=== PATIENT | male | born 1950 | race Caucasian/White ===

== ENCOUNTER → 2018-02-23 08:12 | Outpatient (CLI) | payer MEDICARE, OTHER, SELFPAY ==
--- NOTE | 2018-02-23 08:18 | AAAS_ITS ---
Aorta Measurements Aorta Doppler Measurements Proximal aorta measures1.44cm x 1.54cm. in cross-Peak systolic flow velocities within the proximal sectional axis. aorta measure 108 cm/sec. Proximal aorta measures1.52cm. in longitudinal Peak systolic flow velocities within the mid axis. aorta measure 118 cm/sec. Mid aorta measures1.39cm x 1.43cm. in cross- Peak systolic flow velocities within the distal sectional axis. aorta measure 99 cm/sec. Mid aorta measures1.38cm. in longitudinal axis. Distal aorta measures1.46cm x 1.57cm. in cross- sectional axis. Distal aorta measures1.46cm. in longitudinal axis. Left Iliac Artery Left iliac artery measures 1.02cm x 1.02 cm. in the cross-sectional axis. Left iliac artery measures 0.98 cm. in the longitudinal axis. Peak systolic velocity in the left iliac artery measures 100 cm/sec. Right Iliac Artery Right iliac artery measures 0.88cm x 0.90 cm. in the cross-sectional axis. Right iliac artery measures 0.84 cm. in the longitudinal axis. Peak systolic velocity in the right iliac artery measures 101 cm/sec. Procedure Exam performed in department. Interpretation Summary The dimensions of the intra-abdominal aorta are normal, without evidence of aneurysmal dilatation. The iliac arteries are also normal in size bilaterally. The intra-abdominal aorta and iliac arteries are patent, demonstrating normal, pulsatile arterial flow and normal peak systolic velocities. Ordering Physician: Leonel Hallman Referring Physician: Leonel Hallman Performed By: Anusha Sigala, TASHA, RVT
== END ==
PROVIDERS: Family Provider Family Medicine; PCP Family Medicine; Visit Provider Family Medicine
DX: Z13.6 Encounter for screening for cardiovascular disorders (principal)
CPT/HCPCS: 76706

== ENCOUNTER → 2023-02-11 | Outpatient (CLI) | payer MEDICARE, OTHER, SELFPAY ==
--- NOTE | 2023-02-11 12:21 | ECHOD_ITS ---
Reason For Study: MURUR Procedure This was a 2D Doppler, Color Flow transthoracic echocardiogram. The study was technically difficult. Due to body habitus. Contrast injection was performed. Exam performed in department. Left Ventricle Normal LV size. Left ventricular systolic function is normal. The estimated ejection fraction is 55 %. Stage 1 diastolic dysfunction. No regional wall motion abnormalities noted. Right Ventricle Normal RV size. Normal systolic function. Atria Normal left atrium. Normal right atrium. Mitral Valve Normal mitral valve. Tricuspid Valve Normal tricuspid valve. Aortic Valve Trisinus/trileaflet aortic valve. Mild focal aortic valve calcification. Peak aortic valve gradient 24 mmHg. Mean aortic valve gradient 14 mmHg. Mild aortic stenosis. Pulmonic Valve The pulmonic valve is not well visualized. Great Vessels Normal aortic root. Pericardium/Pleural No pericardial effusion. Medication 22 gauge I.V. with prn adaptor inserted into right arm. Diluted definity 2.0ml given slow IV push to enhance endocardial definition. MMode/2D Measurements & Calculations RVDd: 3.3 cm Ao root diam: 3.3 cm LAV(MOD-bp): 61.2 ml LAV(MOD-bp) Indexed: 26.6 ml/m2 LAV(MOD-sp2): 57.8 ml LAV(MOD-sp4): 61.7 ml SV(MOD-sp4): 37.2 ml LVAd ap4: 24.6 cm2 LVAd ap2: 20.2 cm2 LVLd ap4: 8.0 cm LVLd ap2: 7.9 cm EDV(MOD-sp4): 61.4 ml EDV(MOD-sp2): 43.4 ml EDV(sp4-el): 64.1 ml EDV(sp2-el): 43.8 ml LVAs ap4: 14.1 cm2 LVAs ap2: 11.4 cm2 LVLs ap4: 7.1 cm LVLs ap2: 6.5 cm ESV(MOD-sp4): 24.2 ml ESV(MOD-sp2): 16.4 ml ESV(sp4-el): 24.0 ml ESV(sp2-el): 17.0 ml EF(MOD-sp4): 60.5 % EF(MOD-sp2): 62.1 % EF(sp4-el): 62.7 % SV(MOD-sp2): 27.0 ml SV(sp4-el): 40.2 ml LA A4 area: 19.9 cm2 TAPSE: 1.7 cm RA A4 area: 14.3 cm2 Time Measurements MV dec time: 0.24 sec Doppler Measurements & Calculations MV E max alexi: 64.8 cm/sec Lat Peak E' Alexi: 10.7 cm/sec Med Peak E' Alexi: 9.2 cm/sec MV A max alexi: 68.4 cm/sec E/E' lat: 6.1 E/E' med: 7.0 MV E/A: 0.95 MV dec slope: 280.6 cm/sec2 Ao V2 max: 244.9 cm/sec LV V1 max: 88.3 cm/sec Ao max P.1 mmHg LV V1 max P.1 mmHg Ao V2 mean: 177.7 cm/sec LV V1 mean P.7 mmHg Ao mean P.8 mmHg LV V1 mean: 62.9 cm/sec Ao V2 VTI: 58.2 cm LV V1 VTI: 22.9 cm AV (velocity ratio): 0.39 PA V2 max: 105.1 cm/sec ECHO/Echo Complete W/ Contrast Interpretation Summary Normal LV size. Left ventricular systolic function is normal. The estimated ejection fraction is 55 %. Stage 1 diastolic dysfunction. Mild aortic stenosis. Mild focal aortic valve calcification. Ordering Physician: Lynnette Strauss Referring Physician: Lynnette Strauss Performed By: Sharron Randall RVT, RDCS and Student
== END | disposition home or self-care (01) ==
PROVIDERS: PCP Family Medicine; Referring Provider Family Medicine; Visit Provider Family Medicine
DX: R01.1 Cardiac murmur, unspecified (principal)
CPT/HCPCS: 93306; Q9957; A4216; C8929

== ENCOUNTER → 2023-03-26 | Outpatient (CLI) | payer MEDICARE, OTHER, SELFPAY ==
[2023-03-26 15:11] LABS: Absolute Lymphocyte Count 4.36 X10^3/uL (0.83-4.51); Absolute Neutrophil Count 4.4 X10^3/uL (2.0-7.7); Basophil# 0.07 X10^3/uL; Basophil% 0.7 % (0-1); Eosinophil# 0.24 X10^3/uL; Eosinophils% 2.4 % (0-5); Hematocrit 44.5 % (40-54); Hemoglobin 13.3 g/dL (13.0-16.5); Lymphocyte # 4.36 X10^3/ul (0.83-4.51); Mean Corp Hgb Conc 29.9 g/dL (32-36); Mean Corpuscular Hgb 25.1 pg (27.0-32.0); Mean Corpuscular Volume 84.1 fL (80-94); Mean Platelet Vol. 10.3 fl (6.2-12.0); Monocyte# 1.05 X10^3/uL; Monocyte% 10.3 % (0-10); NRBC Flagged by Analyzer 0 % (0-5); Neutrophil % 43.3 % (47-70); Platelet Count 290 K/mm3 (150-450); RBC Distribution Width CV 19.7 % (11.6-14.6); RBC Distribution Width SD 59.3 fl (35.1-43.9); RET-HE 30.8 pg (30-35); Red Blood Count 5.29 M/mm3 (4.6-6.2); Reticulocyte Count 1.09 % (0.5-1.5); White Blood Count 10.2 K/mm3 (4.4-11.0)
[2023-03-26 15:32] LABS: Vitamin B12 331 pg/mL (211-911); Vitamin D,25 Hydroxy 30.4 ng/mL
[2023-03-26 15:55] LABS: AST(SGOT) 23 U/L (15-37); Alanine Aminotransfer ALT/SGPT 24 U/L (16-61); Albumin, Serum 3.7 g/dL (3.2-5.0); Alkaline Phosphatase 75 U/L (45-117); Anion Gap 4 (5-15); BUN 11 mg/dL (7-18); BUN/Creat Ratio 13.6 RATIO (10-20); Calcium,Total 9.7 mg/dL (8.5-10.1); Chloride 107 mmol/L (98-107); Cholesterol 123 mg/dL (200); Creatinine, Serum 0.81 mg/dL (0.70-1.30); EST Glomerular Filtration Rate 99 mL/min (>60); Est Glom Filt Rate - Afr Amer 120 mL/min (>60); Ferritin 9 ng/mL (26-388); Globulin 3.6 g/dL (2.2-4.2); Glucose 91 mg/dL (74-106); High Density Lipoprotein 48 mg/dL; Iron 84 ug/dL (65-175); Iron Binding Capacity,Total 464 ug/dL (250-450); PERCENT IRON SATURATION 18.1 % (15.0-55.0); Potassium 4.4 mmol/L (3.5-5.1); Protein, Total 7.3 g/dL (6.4-8.2); Sodium Level 138 mmol/L (136-145); Thyroid Stim Hormone (TSH) 1.47 uIU/mL (0.358-3.74); Triglycerides 85 mg/dL; Very Low Density Lipoprotein 17 mg/dL (5-40)
== END | disposition home or self-care (01) ==
LOC: MFPLAB 12:02
PROVIDERS: PCP Family Medicine; Visit Provider Family Medicine
DX: E78.2 Mixed hyperlipidemia (principal); E61.1 Iron deficiency; R53.83 Other fatigue
CPT/HCPCS: 36415; 80053; 80061; 82306; 82607; 82728; 83540; 83550; 84443; 85025; 85045

== ENCOUNTER → 2023-08-14 | Outpatient (CLI) | payer MEDICARE, OTHER, SELFPAY ==
--- OUTSIDE RECORDS SUMMARY | 2023-08-14 12:28 | XMS RPT_ITS | CCD ---
Author Name Unknown Address [address] [place] [address] Organization [facility] Care Team Providers Care Mandrel Maker Name Role Phone Leonel Hallman MD Primary Care Provider LEONEL HALLMAN Attending Unavailable LEONEL HALLMAN Primary Care Unavailable Allergies Allergy Classification Reported Allergen(s) Allergy Type Date of Onset Reaction(s) Facility (2 sources) Sulfamethoxazole Propensity to adverse reactions 2 [facility] (2 sources) Sulfamethoxazole / Trimethoprim Drug Allergy 9 [facility] (2 sources) Trimethoprim Drug Allergy 2 [facility] Medications Current Medications Medication Drug Class(es) Dates Sig (Normalized) Sig (Original) loratadine 10 mg oral tablet (2 sources) loratadine (Claritin) 10 MG tablet Take by mouth. 0 Active rosuvastatin calcium 40 mg oral tablet (2 sources) HMG-CoA Reductase Inhibitor Start: 01-16-2023 take 1 tablet by mouth once daily rosuvastatin (Crestor) 40 MG tablet TAKE 1 TABLET BY MOUTH EVERY DAY 90 tablet 1 01/16/2023 Active Problems Active Problems Problem Classification Problem Date Documented Da te Episodic/Chronic Disorders of lipid metabolism (4 sources) Hyperlipidemia; Translations: [Hyperlipidemia, unspecified] Onset: 12-29-2015 05-13-2022 Chronic Other nutritional; endocrine; and metabolic disorders (2 sources) Obesity caused by energy imbalance; Translations: [Other obesity due to excess calories] Onset: 08-22-2021 05-13-2022 Chronic Other nutritional; endocrine; and metabolic disorders (2 sources) Other obesity due to excess calories; Translations: [Other obesity due to excess calories] Onset: 05-13-2022 Chronic Other nutritional; endocrine; and metabolic disorders (2 sources) Body mass index (BMI) 36.0-36.9, adult; Translations: [Body mass index (BMI) 36.0-36.9, adult] Onset: 05-13-2022 Chronic Other upper respiratory disease (2 sources) Allergic rhinitis due to pollen; Translations: [Allergic rhinitis due to pollen] Onset: 08-11-2020 05-13-2022 Chronic Past or Other Problems Problem Classification Problem Date Documented Da te Episodic/Chronic Neoplasms of unspecified nature or uncertain behavior (2 sources) Neoplasm of uncertain behavior of skin of nose; Translations: [Neoplasm of uncertain behavior of skin] Onset: 02-19-2021 08-26-2022 Episodic Other screening for suspected conditions (not mental disorders or infectious disease) (2 sources) Encounter for screening for malignant neoplasm of colon; Translations: [Encounter for screening for malignant neoplasm of colon] Onset: 08-26-2022 Episodic Other skin disorders (2 sources) Actinic keratosis; Translations: [Actinic keratosis] Onset: 02-23-2021 05-13-2022 Episodic Other upper respiratory disease (3 sources) Deviated nasal septum; Translations: [Deviated nasal septum] Onset: 08-26-2022 08-26-2022 Episodic Other upper respiratory disease (1 source) Deviated nasal septum; Translations: [Deviated nasal septum] Onset: 08-26-2022 Episodic Results Test Name Value Interpretation Reference Range Facil ity Encounters Encounter Date Encounter Type Care Provider Facility Start: 06-24-2023 Telephone encounter Leonel Florentino MD Work Phone: [facility] Procedures Date Procedure Procedure Detail Performing Clinician Start: 02-21-2022 Lipid 1996 panel - S ignacio or Plasma Leonel Hallman MD Work Phone: Start: 01-12-2015 Colonoscopy Leonel guadarrama MD Work Phone: Plan of Treatment Date Care Activity Detail Author Start: 02-21-2027 Lipid panel Lipid Panel [facility] Start: 01-12-2025 Screening for malign ant neoplasm of colon [facility] Start: 12-14-2023 DTaP/Tdap/Td Vaccine s (2 - Td or Tdap) DTaP/Tdap/Td Vaccines (2 - Td or Tdap) [facility] Start: 03-28-2023 COVID-19 Vaccine ( season) COVID-19 Vaccine ( season) [facility] Start: 03-28-2023 Influenza vaccination Influenza Vacc ine (#1) [facility] Start: 09-02-2022 COVID-19 Vaccine (5 - Pfizer series) COVID-19 Vaccine (5 - Pfizer series) [facility] Start: 2008 RSV Immunization age d 60 or older (1 - 1-dose 60+ series) RSV Immunization aged 60 or older (1 - 1-dose 60+ series) [facility] Start: 1966 Diabetes mellitus screening Diabetes Screening [facility] Start: 1966 Hepatitis C screening Hepatitis C Sc reening [facility] Start: 1960 Depression Screening Depression Scre ening [facility] Start: 01-10-1949 Examination of skin Derm Melanoma Sk in Check [facility] Start: 1948 Medicare Annual Well ness (AWV) Medicare Annual Wellness (AWV) [facility] Start: 1950 Screening for malign ant neoplasm of colon [facility] Immunizations Immunization Date Immunization Notes Care Provider Fa cility 05-16-2022 influenza virus vacc ine, unspecified formulation Leonel Hallman MD Work Phone: [facility] 05-16-2022 Influenza, High-dose Seasonal, Quadrivalent, Preservative Free Leonel Hallman MD Work Phone: [facility] 05-02-2022 Covid-19, Pfizer Biv alent Booster, (Age 12y+), Im, 30 Mcg/0e Leonel Hallman MD Work Phone: [facility] 12-26-2021 Covid-19, Pfizer Gra y Top, Do Not Dilute, (Age 12 Y+), Im, L Leonel Hallman MD Work Phone: [facility] 06-01-2021 Pfizer SARS-CoV-2 Vaccination Leonel Hallman MD Work Phone: [facility] 05-24-2021 Influenza, High-dose Seasonal, Quadrivalent, Preservative Free Leonel Hallman MD Work Phone: [facility] 05-03-2020 Influenza, Seasonal, Quadrivalent, Adjuvanted Leonel Hallman MD Work Phone: [facility] 04-20-2020 zoster vaccine recombinant Leonel Hallman MD Work Phone: [facility] 02-18-2020 zoster vaccine recombinant Leonel Hallman MD Work Phone: [facility] 05-03-2019 Seasonal trivalent influenza vaccine, adjuvanted, preservative free Leonel Hallman MD Work Phone: [facility] Work Phone: 05-12-2018 influenza, high dose seasonal, preservative-free Leonel Hallman MD Work Phone: [facility] 03-03-2018 influenza, high dose seasonal, preservative-free Leonel Hallman MD Work Phone: [facility] 05-16-2017 influenza, high dose seasonal, preservative-free Leonel Hallman MD Work Phone: [facility] 12-31-2014 zoster vaccine, live Leonel Hallman MD Work Phone: [facility] 12-26-2014 pneumococcal conjuga te vaccine, 13 valent Leonel Hallman MD Work Phone: [facility] 12-13-2013 pneumococcal polysaccharide vaccine, 23 valent Leonel Hallman MD Work Phone: [facility] 12-13-2013 tetanus toxoid, redu bird diphtheria toxoid, and acellular pertussis vaccine, adsorbed Leonel Hallman MD Work Phone: [facility] Payers Date Payer Category Payer Private Health Insurance [employer] A [employer] S[employer]IOR [employer]MENT [id number] 2019-Present [address] [address] [place] [address] Supplement [id number] 2019 Private Health Insurance [facility] [id number] 2014 Medicare MEDICARE MEDICAR E PART A AND B [id number] 2014-Present [address] [place] [address] Medicare [id number] 2014 Medicare [id number] Social History Date Type Detail Facility Start: 08-26-2022 Tobacco smoking status NHIS Ex-smoke r [facility] End: 11-25-2021 History of tobacco use Current smoker [facility] End: 11-25-2021 History of tobacco use Cigarette Smoker [facility] Start: 08-26-2022 Cigarettes smoked cu rrent (pack per day) - Reported 0.3 [facility] Start: 08-26-2022 Tobacco use and exposure Smokeless t obacco non-user [facility] Start: 08-26-2022 Alcohol intake Current drinke r of alcohol (finding) [facility] Start: 08-26-2022 Tobacco use panel [facility] How hard is it for y ou to pay for the very basics like food, housing, medical care, and heating Not hard at all [facility] (I/We) worried miguel er (my/our) food would run out before (I/we) got money to buy more. Never true [facility] Start: 1950 Sex Assigned At Not on file [facility] Telephone encounter Note 06-30-2023 Telephone Encounter - Leonel Hallman MD - 06/30/2023 6:50 AM EST Note Date & Type Note Facility 06-30-2023 Telephone encounter Note Form atting of this note might be different from the original. Okay, thank you [facility] Note 06-30-2023 Telephone Encounter - Leonel Hallman MD - 06/30/2023 6:50 AM ESTTelephone Encounter - Shayy Rick - 06/24/2023 4:58 PM EST Note Date & Type Note Facility 06-30-2023 Miscellaneous Notes Formattin g of this note might be different from the original. Okay, thank you FYI: Referral to Dr Ruvalcaba on 08/26/22 was closed due to non-compliancy from patient. documented in this encounter [facility] Clinical Note 06-24-2023 Note Date & Type Note Facility 06-24-2023 Note FYI: Referral to Dr Ruvalcaba on 08/26/22 was closed due to non-compliancy from patient. [facility] Telephone encounter Note 06-24-2023 Telephone Encounter - Shayy Rick - 06/24/2023 4:58 PM EST Note Date & Type Note Facility 06-24-2023 Telephone encounter Note Form atting of this note might be different from the original. FYI: Referral to Dr Ruvalcaba on 08/26/22 was closed due to non-compliancy from patient. [facility] Telephone encounter Note 04-30-2023 Telephone Encounter - Kassy Jacobs - 04/30/2023 11:43 AM EDT Note Date & Type Note Facility 04-30-2023 Telephone encounter Note Form atting of this note might be different from the original. Noted [facility] Note 04-30-2023 Telephone Encounter - Kassy Jacobs - 04/30/2023 11:43 AM EDTTelephone Encounter - Leonel Hallman MD - 04/23/2023 4:16 PM EDT Note Date & Type Note Facility 04-30-2023 Miscellaneous Notes Formattin g of this note might be different from the original. Noted Okay, thank you This communication is to update you on the GI referral placed for Dr. Jan Trejo. Referral has been sent to referred specialist for completion. Unfortunately, the patient has not responded to any form of communication attempted by the specialists office or ours. Requesting approval to close referralClose Referral Requesting response and or direction to be able to complete the referral process Please advise documented in this encounter [facility] Clinical Note 04-23-2023 Note Date & Type Note Facility 04-23-2023 Note This communication i s to update you on the GI referral placed for Dr. Jan Trejo. Referral has been sent to referred specialist for completion. Unfortunately, the patient has not responded to any form of communication attempted by the specialists office or ours. Requesting approval to close referralClose Referral Requesting response and or direction to be able to complete the referral process Please advise [facility] Telephone encounter Note 04-23-2023 Telephone Encounter - Leonel Hallman MD - 04/23/2023 4:16 PM EDT Note Date & Type Note Facility 04-23-2023 Telephone encounter Note Form atting of this note might be different from the original. Okay, thank you [facility] Telephone encounter Note 04-23-2023 Telephone Encounter - Kassy Jacobs - 04/23/2023 3:49 PM EDT Note Date & Type Note Facility 04-23-2023 Telephone encount er Note This communication is to update you on the GI referral placed for Dr. Jan Trejo. Referral has been sent to referred specialist for completion. Unfortunately, the patient has not responded to any form of communication attempted by the specialists office or ours. Requesting approval to close referralClose Referral Requesting response and or direction to be able to complete the referral process Please advise [facility] Clinical Note 08-26-2022 Note Date & Type Note Facility 08-26-2022 Note Referral to ENTcésar that he use a steroid nasal spray and antihistamine on a regular basis [facility] Summary Purpose Family History No Family History Records Found Advance Directives No Advanced Directives Records Found Additional Source Comments Reason for Visit (unrecogniz ed section and content) Reason Onset Date Comments Referral 06/24/2023 Dr Ruvalcaba Care Teams (unrecognized sec tion and content) Mandrel Maker Relationship Specialty Start Date End Date Leonel Hallman MD [address] [place] [address], [facility] [place] [address] PCP - General 12/26/18 (unrecognized sect ion and content) No Status Records Found INFORMATION SOURCE (unrecogn ized section and content) FOR RECORDS PERTAINING TO PATIENTS WHO ARE OR HAVE BEEN ENROLLED IN A CHEMICAL DEPENDENCY/SUBSTANCEABUSE PROGRAM, SOME INFORMATION MAY BE OMITTED. This clinical summary was aggregated from multiple sources. Caution should be exercised in using it in the provision of clinical care. This summary normalizes information from multiple sources, and as a consequence, information in this document may materially change the coding, format and clinical context of patient data. In addition, data may be omitted in some cases. CLINICAL DECISIONS SHOULD BE BASED ON THE PRIMARY CLINICAL RECORDS. [employer] provides no warranty or guarantee of the accuracy or completeness of information in this document.
[2023-08-14 15:46] LABS: Absolute Lymphocyte Count 4.65 X10^3/uL (0.83-4.51); Absolute Neutrophil Count 5.4 X10^3/uL (2.0-7.7); Basophil# 0.09 X10^3/uL; Basophil% 0.8 % (0-1); Eosinophil# 0.25 X10^3/uL; Eosinophils% 2.2 % (0-5); Hematocrit 48.8 % (40-54); Hemoglobin 15.3 g/dL (13.0-16.5); Lymphocyte # 4.65 X10^3/ul (0.83-4.51); Lymphocyte % 40.1 % (19-41); Mean Corp Hgb Conc 31.4 g/dL (32-36); Mean Corpuscular Hgb 29.1 pg (27.0-32.0); Mean Platelet Vol. 9.8 fl (6.2-12.0); Monocyte# 1.11 X10^3/uL; Monocyte% 9.6 % (0-10); NRBC Flagged by Analyzer 0 % (0-5); Neutrophil # 5.43 X10^3/uL (2.7-7.7); Neutrophil % 46.7 % (47-70); Platelet Count 354 K/mm3 (150-450); RBC Distribution Width CV 14.8 % (11.6-14.6); RBC Distribution Width SD 51.4 fl (35.1-43.9); Red Blood Count 5.25 M/mm3 (4.6-6.2); White Blood Count 11.6 K/mm3 (4.4-11.0)
[2023-08-14 16:42] LABS: Ferritin 36 ng/mL (26-388); Iron 83 ug/dL (65-175); Iron Binding Capacity,Total 425 ug/dL (250-450); PERCENT IRON SATURATION 19.5 % (15.0-55.0); PSA,Total - Annual Screen 0.96 ng/mL (0.00-4.00)
== END | disposition home or self-care (01) ==
LOC: MFPLAB 12:02
PROVIDERS: PCP Family Medicine; Visit Provider Family Medicine
DX: Z12.5 Encounter for screening for malignant neoplasm of prostate (principal); D59.0 Drug-induced autoimmune hemolytic anemia
CPT/HCPCS: 36415; 82728; 83540; 83550; 84153; 85025; G0103

== ENCOUNTER 2024-03-22 00:26 | Emergency (ER) | payer MEDICARE, OTHER, SELFPAY ==
[2024-03-22 00:28] VITALS: BP 175/74; PULSE 82; RESP 18; TEMP 36.3; O2SAT 95; BMI 34.7
--- NOTE | 2024-03-22 01:13 | CT_ITS ---
INDICATION: DIZZY EXAMINATION: CT BRAIN - CT Head or Brain W/O Contrast Injection TECHNIQUE: Multiple axial images were obtained of the head without intravenous contrast. The protocol utilizes one or more of the following dose reduction techniques: automated exposure control, adjustment of mA and/or kV according to patient size,and/or use of iterative reconstruction technique. IV Contrast dosage and agent: None. RADIATION DOSAGE (If Supplied By Facility): CTDIvol = ( 44.99 ) mGy, DLP = ( 880.47 ) mGycm COMPARISON: No relevant prior comparison study available FINDINGS: BRAIN: No acute bleed. No edema. Mild decreased attenuation in the periventricular white matter bilaterally. Odom-white matter differentiation is maintained. Arterial calcifications. VENTRICLES AND SULCI: Not dilated. EXTRA-AXIAL: No hemorrhage, fluid collection, or mass. CALVARIUM / SKULL BASE: Unremarkable. FACE/SINUSES: Unremarkable. SOFT TISSUES: Unremarkable. CT/Brain/Head without Contrast IMPRESSION: No acute abnormality. Mild chronic microvascular ischemic disease. CT angiogram and/or MRI may be helpful to evaluate for acute infarct as clinically indicated. Electronically Signed: Porsha Levy MD at 2:30 EDT ,
[2024-03-22 01:21] LABS: Absolute Lymphocyte Count 6.34 X10^3/uL (0.83-4.51); Absolute Neutrophil Count 5.2 X10^3/uL (2.0-7.7); Basophil# 0.08 X10^3/uL; Basophil% 0.6 % (0-1); Eosinophil# 0.31 X10^3/uL; Eosinophils% 2.4 % (0-5); Hematocrit 44.3 % (40-54); Hemoglobin 14.6 g/dL (13.0-16.5); Lymphocyte # 6.34 X10^3/ul (0.83-4.51); Lymphocyte % 48.2 % (19-41); Mean Corpuscular Hgb 30.6 pg (27.0-32.0); Mean Corpuscular Volume 92.9 fL (80-94); Mean Platelet Vol. 9.3 fl (6.2-12.0); Monocyte# 1.15 X10^3/uL; Monocyte% 8.7 % (0-10); NRBC Flagged by Analyzer 0 % (0-5); Neutrophil # 5.16 X10^3/uL (2.7-7.7); Neutrophil % 39.2 % (47-70); POSITIVE DIFFERENTIAL YES; POSITIVE MORPHOLOGY YES; Platelet Count 260 K/mm3 (150-450); RBC Distribution Width CV 13.2 % (11.6-14.6); RBC Distribution Width SD 44.9 fl (35.1-43.9); Red Blood Count 4.77 M/mm3 (4.6-6.2); White Blood Count 13.2 K/mm3 (4.4-11.0)
[2024-03-22 01:25] LABS: Differential Indicated SCAN CRITERIA MET
--- NOTE | 2024-03-22 01:28 | RAD_ITS ---
INDICATION: cough EXAMINATION/TECHNIQUE: X-RAY - XR Chest 2 Views COMPARISON: No relevant prior comparison study available FINDINGS: LINES/DEVICES: None. LUNGS: No consolidation. Reticular opacity in the lung bases may be scarring or subsegmental atelectasis. No pneumothorax. MEDIASTINUM: Unremarkable. CARDIAC SILHOUETTE: Not enlarged. BONES AND SOFT TISSUES: No acute abnormalities. RAD/Chest PA and Lateral IMPRESSION: Bibasilar scarring versus subsegmental atelectasis. No infiltrates. Electronically Signed: Porsha Levy MD at 3:10 EDT ,
[2024-03-22 01:37] LABS: Anion Gap 5 (5-15); BUN 13 mg/dL (7-18); BUN/Creat Ratio 11.9 RATIO (10-20); Calcium,Total 9.2 mg/dL (8.5-10.1); Chloride 108 mmol/L (98-107); Creatinine, Serum 1.09 mg/dL (0.70-1.30); EST Glomerular Filtration Rate 70 mL/min (>60); Est Glom Filt Rate - Afr Amer 85 mL/min (>60); Estimated Creatinine Clearance 74.89 ml/min; Glucose 114 mg/dL (74-106); Magnesium 2.1 mg/dL (1.6-2.6); Potassium 3.6 mmol/L (3.5-5.1); Sodium Level 142 mmol/L (136-145)
[2024-03-22 01:51] LABS: Differential Comment SCANNED; Reactive Lymphocyte 3+
[2024-03-22] MEDS: 0.9% Normal Saline (500mL Bag) 500 ML 999 ML IV (02:01)
[2024-03-22] MEDS: diazePAM 5 MG Tablet 2.5 MG PO (02:02)
[2024-03-22 02:27] VITALS: BP 141/69; PULSE 72; RESP 15; O2SAT 95
--- NOTE | 2024-03-22 03:18 | EDS_ITS ---
HPI History of Present Illness Chief Complaint: Dizziness Informant: patient, spouse/S.O. and family Narrative Narrative: Patient is a 73-year-old male with past medical history of hypertension. He states for approximately 10 days he has had nasal congestion with mild cough. He reports that he had been seen for this and that he was placed on steroids and an antibiotic however there was no drastic symptom improvement. He states he does seem to get this twice a year. However this evening he was in bed and he states he rolled over and he developed severe dizziness which she describes as a sense of motion and nausea. He states that it happened a second time and that concerned him and therefore EMS was called. However by the time EMS arrived patient had near complete resolution of his dizziness and was able to walk to the ambulance with a steady gait [facility] Medical History (Updated 03/23/24 @ 01:[address] Chandu Wadsworth, ) Hypercholesterolemia Home Medications ?Medication ?Instructions ?Recorded ?Last Taken ?Type atorvastatin 10 mg tablet (Lipitor) 10 mg PO DAILY 10/30/18 Unknown History azithromycin 250 mg tablet See Rx Instructions PO .COMPLEX #6 07/13/23 Unknown Rx (Zithromax Z-Moses) tabs prednisone 10 mg tablet 10 mg PO .COMPLEX #30 tabs 07/13/23 Unknown Rx amoxicillin 875 mg-potassium 1 tab PO BID #20 tabs 07/29/23 Unknown Rx clavulanate 125 mg tablet diazepam 2 mg tablet (Valium) 2 mg PO TID PRN dizziness or 03/22/24 Unknown Rx vertigo #15 tabs ondansetron 4 mg disintegrating 4 mg PO TID PRN nausea and 03/22/24 Unknown Rx tablet vomiting #21 tabs Allergy/AdvReac Type Severity Reaction Status Date / Time sulfamethoxazole (From Allergy Rash Verified 03/22/24 00:28 Bactrim) trimethoprim (From Bactrim) Allergy Rash Verified 03/22/24 00:28 Surgical History History of cataract surgery Detached retina, bilateral History of appendectomy Social History Smoking Status: Former smoker alcohol intake: current alcohol intake frequency: 0-2 drinks per day Alcohol type: beer ROS ROS ED Constitutional Constitutional ED: Denies chills or fever(s) Eyes Eyes: Denies blurry vision or change in vision ENT ENT ED: Reports rhinorrhea, sore throat and other Details: Patient denies tinnitus ; Denies ear pain Cardiovascular Cardiovascular: Denies chest pain, palpitations or racing heartbeat Respiratory/Chest Respiratory/Chest: Denies cough or dyspnea Gastrointestinal Gastrointestinal: Reports nausea; Denies abdominal pain, diarrhea or vomiting Genitourinary Genitourinary ED: Denies dysuria Musculoskeletal Musculoskeletal: Denies myalgias Integumentary Denies rash Neurologic Neurologic: Reports other Details: Positive dizziness ; Denies headache(s) Hematologic/Lymphatic Hematologic/Lymphatic: Denies easy bleeding or easy bruising EXAM Physical Exam Const Vital Signs: 03/22/24 02:27 03/22/24 03:34 Temperature 98.9 F Pulse Rate 72 84 Respiratory Rate 15 21 H Blood Pressure 141/69 H 134/95 H Blood Pressure Mean 93 108 Pulse Ox 95 94 Oxygen Delivery Method Room Air Positive well nourished, well developed and obese General Appearance ED: well developed; Negative for pallor Nutritional Appearance: obese HEENT HEENT Narrative: Bilateral TMs are retracted but show no secondary changes to suggest infection/hepatitis No pain with palpation of either mastoid region There is cobblestoning noted in posterior pharynx consistent with sinus drainage without airway edema or compromise No secondary findings in the posterior pharynx to suggest infection Eyes PERRL and EOMs intact bilaterally General Eye ED: Negative for pale conjunctiva or scleral icterus Neck supple and no JVD Neck Narrative: No nuchal rigidity or meningeal sign Resp normal respiratory effort and clear to auscultation bilaterally Cardio regular rate and regular rhythm Extremity normal to inspection Neuro oriented x3, CN's II-XII intact bilaterally and no sensory deficits noted Neuro Narrative: GCS of 15 Cranial nerves II through XII are grossly intact there are no focal neurologic deficits No pronator drift no dysmetria no truncal ataxia NIH stroke scale score of 0 There is mild horizontal nystagmus noted Sensorium / Orientation: alert Motor Exam: strength 5/5 throughout Psych mental status grossly normal Skin no rashes or lesions noted General Skin Exam: Negative for jaundice or pallor MDM MDM MDM Narrative Medical decision making narrative: Patient arrived to the ER hypertensive otherwise with stable vitals. He reported that he rolled over in bed and developed severe dizziness which she described as motion that improved at rest. Demential diagnosis is for benign paroxysmal positional vertigo versus lab arthritis versus central vertigo. There is also potential for infection such as pneumonia as she has had congestion and cough or electrolyte abnormality or acute blood loss anemia. Basic labs were obtained and his white blood cell count is slightly elevated but he also has had recent steroid use which is most likely reason for this. Otherwise H&H is stable and he does not have acute kidney injury or clinically significant electrolyte abnormality. Head CT revealed no acute bleed or mass. Chest x-ray revealed no acute lung pathology such as pneumonia. after receiving Valium he was able to ambulate with a steady gait and is overall workup is negative he has had improvement of his vitals and his neurologic exam remains normal and the dizziness has resolved there is no need for further evaluation or admission and he is otherwise safe for discharge History & Record Review Discussion w/independent historian: Patient, Family and Significant other Lab Data Attestation: I reviewed the patient's lab results. Labs: Laboratory Results - last 24 hr 03/22/24 00:36 Differential Comment SCANNED Reactive Lymphocytes 3+ Radiography Diagnostic Testing: Clinical Impression(s) from Imaging Studies Brain CT 03/22/24 01:13 IMPRESSION: No acute abnormality. Mild chronic microvascular ischemic disease. CT angiogram and/or MRI may be helpful to evaluate for acute infarct as clinically indicated. Electronically Signed: Porsha Levy MD at 2:30 EDT , Chest X-Ray 03/22/24 01:28 IMPRESSION: Bibasilar scarring versus subsegmental atelectasis. No infiltrates. Electronically Signed: Porsha Levy MD at 3:10 EDT , Chest x-ray as interpreted by the emergency medicine physician reveals no acute infiltrate pneumothorax or pleural effusion Discharge Plan Triage Chief Complaint: Dizziness ED Provider: Chandu Wadsworth Dx/Rx/DC Orders Clinical Impression: Vertigo, URI (upper respiratory infection), Hyperlipidemia Instructions: ED BPV Vertigo, ED URI, Viral, No Abx (Adult) Prescriptions: New ondansetron 4 mg tablet,disintegrating 4 mg PO TID PRN (Reason: nausea and vomiting) Qty: 21 0RF diazepam [Valium] 2 mg tablet 2 mg PO TID PRN (Reason: dizziness or vertigo) Qty: 15 0RF No Action atorvastatin [Lipitor] 10 mg tablet 10 mg PO DAILY azithromycin [Zithromax Z-Moses] 250 mg tablet See Rx Instructions PO .COMPLEX Qty: 6 0RF Rx Instructions: For 250 mg dose pack: take 500 mg today (day 1), then 250 mg for 4 days (days 2-5) PO prednisone 10 mg tablet 10 mg PO .COMPLEX Qty: 30 0RF Rx Instructions: Take 4 pills for 3 days, 3 pills for 3 days, 2 pills for 3 days, take 1 pill for 3 days amoxicillin-pot clavulanate 875-125 mg tablet 1 tab PO BID Qty: 20 0RF Stand Alone Forms: ED Work / School Excuse Primary Care Provider: Jyotsna Jean Referrals: Jyotsna Jean MD [Primary Care Provider] - Print Language: Guinean Disposition Disposition: Home, Self Care Discharge Date/Time: 03/22/24 03:34
[2024-03-22 03:34] VITALS: BP 134/95; PULSE 84; RESP 21; TEMP 37.2; O2SAT 94
== END 2024-03-22 03:34 | disposition home or self-care (01) ==
PROVIDERS: Emergency Provider Emergency Medicine; PCP Family Medicine; Visit Provider Emergency Medicine
DX: R42 Dizziness and giddiness (principal); J06.9 Acute upper respiratory infection, unspecified; I10 Essential (primary) hypertension; Z87.891 Personal history of nicotine dependence; E78.00 Pure hypercholesterolemia, unspecified; Z79.899 Other long term (current) drug therapy; Z90.49 Acquired absence of other specified parts of digestive tract
CPT/HCPCS: 70450; 71046; 80048; 83735; 85025; 96360; 99283; J7030; A4216

== ENCOUNTER → 2024-04-01 | Outpatient (CLI) | payer MEDICARE, OTHER, SELFPAY ==
[2024-04-01 13:13] LABS: Cholesterol 161 mg/dL (200); High Density Lipoprotein 50 mg/dL; Triglycerides 86 mg/dL; Very Low Density Lipoprotein 17 mg/dL (5-40)
== END | disposition home or self-care (01) ==
LOC: MFPLAB 10:56
PROVIDERS: PCP Family Medicine; Visit Provider Family Medicine
DX: E78.2 Mixed hyperlipidemia (principal)
CPT/HCPCS: 36415; 80061

== ENCOUNTER → 2024-04-20 | Outpatient (CLI) | payer MEDICARE, OTHER, SELFPAY | END | disposition home or self-care (01) | LOC: PSN 09:19 | PROVIDERS: PCP Family Medicine; Referring Provider Family Medicine; Visit Provider Family Medicine | DX: R06.02 Shortness of breath (principal) | CPT/HCPCS: 94060; 94726; 94729 ==

== ENCOUNTER → 2024-12-28 | Outpatient (CLI) | payer MEDICARE, OTHER, SELFPAY | END | disposition home or self-care (01) | LOC: LABSPEC 10:52 | PROVIDERS: PCP Family Medicine; Referring Provider Family Medicine; Visit Provider Family Medicine | DX: N39.0 Urinary tract infection, site not specified (principal) | CPT/HCPCS: 87077; 87086; 87088; 87186 ==

== ENCOUNTER → 2025-01-11 | Outpatient (CLI) | payer MEDICARE, OTHER, SELFPAY ==
[2025-01-11 17:08] LABS: PSA,Total - Annual Screen 0.79 ng/mL (0.02-4.00)
== END | disposition home or self-care (01) ==
LOC: LAB 14:02
PROVIDERS: PCP Family Medicine; Referring Provider Nurse Practitioner; Visit Provider Nurse Practitioner
DX: Z12.5 Encounter for screening for malignant neoplasm of prostate (principal)
CPT/HCPCS: 36415; 84153; G0103